=== PATIENT | male | born 1985 | race Caucasian/White ===

== ENCOUNTER → 2020-09-01 | Emergency (ER) | payer SELFPAY ==
[~2020-09-01] VITALS: Ht 172.7 cm; Wt 113.4 kg
[~2020-09-01] MED LIST: FLEXERIL10 MG PO; MEDROL DOSEPAK4 MG PO; METHOCARBAMOL500 M1 PO; NAPROSYN500 MG PO
== END ==
LOC: ED 12:19
DX: S39.012A Strain of muscle, fascia and tendon of lower back, initial encounter (principal); M54.30 Sciatica, unspecified side; F17.200 Nicotine dependence, unspecified, uncomplicated; X58.XXXA Exposure to other specified factors, initial encounter; Y93.89 Activity, other specified; Y92.89 Other specified places as the place of occurrence of the external cause; Y99.8 Other external cause status

== ENCOUNTER 2023-12-09 14:49 | Emergency (ER) | payer SELFPAY ==
[~2023-12-09] VITALS: Ht 172.7 cm; Wt 127.0 kg
[2023-12-09] MEDS ORDERED: ZITHROMAX250 MG PO (16:04)
== END 2023-12-09 16:06 | disposition home or self-care (01) ==
LOC: ED 14:49
DX: H66.91 Otitis media, unspecified, right ear (principal)